=== PATIENT | female | born 1980 | race Caucasian/White ===

== ENCOUNTER 2016-09-02 21:47 | Emergency (ER) | payer OTHER | END 2016-09-03 00:10 | disposition left against medical advice (07) | LOC: ER1 21:47 | DX: Z53.21 Procedure and treatment not carried out due to patient leaving prior to being seen by health care provider (principal) ==

== ENCOUNTER 2016-09-15 21:46 | Emergency (ER) | payer OTHER ==
[2016-09-15 22:57] LABS: HEMOGLOBIN 15.5 gm/dl (12.3-15.3); RED BLOOD COUNT 4.82 M/UL (4.00-5.10)
[2016-09-15 23:22] LABS: BUN/CREATININE RATIO 11 (0-10)
[2016-09-16 02:37] LABS: BUN/CREATININE RATIO 13 (0-10)
== END 2016-09-16 04:05 | disposition home or self-care (01) ==
LOC: ER1 21:46
PROVIDERS: Student in an Organized Health Care Education/Training Program
DX: F41.9 Anxiety disorder, unspecified (principal); F11.10 Opioid abuse, uncomplicated; F12.10 Cannabis abuse, uncomplicated; D72.829 Elevated white blood cell count, unspecified; R06.00 Dyspnea, unspecified; C15.9 Malignant neoplasm of esophagus, unspecified; Z88.0 Allergy status to penicillin; Z88.6 Allergy status to analgesic agent; Z88.8 Allergy status to other drugs, medicaments and biological substances; Z79.899 Other long term (current) drug therapy
CPT/HCPCS: 36415; 71010; 80048; 80053; 80307; 81001; 82550; 82553; 83874; 84484; 84703; 85025; 85379; 87086; 93005; 96374; 96375; 96376; 99285; J2060; J2270; J2405

== ENCOUNTER 2016-09-23 18:44 | Emergency (ER) | payer OTHER ==
[2016-09-23 19:44] LABS: HEMOGLOBIN 13.8 gm/dl (12.3-15.3); RED BLOOD COUNT 4.32 M/UL (4.00-5.10); WHITE BLOOD COUNT 13.8 K/UL (4.5-11.0)
[2016-09-23 20:06] LABS: BUN/CREATININE RATIO 8 (0-10)
== END 2016-09-23 22:24 | disposition home or self-care (01) ==
LOC: ER1 18:44
PROVIDERS: Physician Assistant
DX: B37.0 Candidal stomatitis (principal); K04.7 Periapical abscess without sinus; F32.9 Major depressive disorder, single episode, unspecified; F17.210 Nicotine dependence, cigarettes, uncomplicated; I10 Essential (primary) hypertension; E66.9 Obesity, unspecified; F41.9 Anxiety disorder, unspecified; Z88.0 Allergy status to penicillin; Z88.6 Allergy status to analgesic agent; Z88.8 Allergy status to other drugs, medicaments and biological substances; Z90.711 Acquired absence of uterus with remaining cervical stump
CPT/HCPCS: 36415; 70491; 71010; 80048; 85025; 86140; 87081; 87880; 96374; 96375; 99283; J1100; J2270; J7050; Q9962

== ENCOUNTER 2016-10-10 19:03 | Emergency (ER) | payer OTHER | END 2016-10-10 21:00 | disposition left against medical advice (07) | LOC: ER1 19:03 | DX: K22.8 Other specified diseases of esophagus (principal); M54.9 Dorsalgia, unspecified | CPT/HCPCS: 36415; 93005; 99284 ==

== ENCOUNTER 2020-06-12 01:28 | Emergency (ER) | payer OTHER ==
[~2020-06-12 01:28] MED LIST: BACLOFEN20 MG PO; BREO ELLIPTA 21 EACH INH; CYCLOBENZAPRINE10 MG PO; EMGALITY120 MG/1 M INJ; HYDROCODON-ACE1 EAC2 PO; NAPROSYN500 MG PO; NORCO 7.5-3251 EACH PO; VENTOLIN HFA 66.7 GM INH
[2020-06-12] MEDS ORDERED: CYCLOBENZAPRINE10 MG PO (03:13)
[2020-06-12] MEDS ORDERED: IBUPROFEN800 MG PO (03:13)
== END 2020-06-12 03:35 | disposition home or self-care (01) ==
LOC: ER1 01:28
DX: M79.621 Pain in right upper arm (principal); F17.210 Nicotine dependence, cigarettes, uncomplicated; Z88.0 Allergy status to penicillin; Z88.1 Allergy status to other antibiotic agents; Z88.8 Allergy status to other drugs, medicaments and biological substances
CPT/HCPCS: 96372; 99283; J1885; J2360

== ENCOUNTER → 2020-10-29 | Outpatient (CLI) | payer OTHER ==
[~2020-10-29] MED LIST changes: +IBUPROFEN800 MG PO
== END ==
LOC: EXRD 16:00
DX: M79.604 Pain in right leg (principal); M79.605 Pain in left leg
CPT/HCPCS: 93970

== ENCOUNTER → 2021-02-02 | Outpatient (CLI) | payer OTHER | LOC: KOH-I 14:30 | DX: R22.1 Localized swelling, mass and lump, neck (principal) | CPT/HCPCS: 70450; 70490 ==

== ENCOUNTER → 2021-04-26 | Outpatient (CLI) | payer OTHER | LOC: RAD 08:00 | DX: R13.10 Dysphagia, unspecified (principal) | CPT/HCPCS: 74221 ==

== ENCOUNTER 2021-07-17 20:28 | Emergency (ER) | payer OTHER ==
[2021-07-17 22:34] LABS: RED BLOOD COUNT 4.61 M/UL (4.00-5.10)
[2021-07-17 23:08] LABS: BORDETELLA PARAPERTUSSIS Not Detected (Not Detectd); BORDETELLA PERTUSSIS Not Detected (Not Detectd); CHLAMYDIA PNEUMONIAE Not Detected (Not Detectd); CORONAVIRUS HKU1 Not Detected (Not Detectd); CORONAVIRUS NL63 Not Detected (Not Detectd); CORONAVIRUS OC43 Not Detected (Not Detectd); CORONOAVIRUS 229E Not Detected (Not Detectd); HUMAN METAPNEUMOVIRUS Not Detected (Not Detectd); HUMAN RHINOVIRUS/ENTEROVIRUS Not Detected (Not Detectd); INFLUENZA A Not Detected (Not Detectd); INFLUENZA B Not Detected (Not Detectd); MYCOPLASMA PNEUMONIAE Not Detected (Not Detectd); PARAINFLUENZA VIRUS 1 Not Detected (Not Detectd); PARAINFLUENZA VIRUS 2 Not Detected (Not Detectd); PARAINFLUENZA VIRUS 3 Not Detected (Not Detectd); PARAINFLUENZA VIRUS 4 Not Detected (Not Detectd); RESPIRATORY SYNCYTIAL VIRUS Not Detected (Not Detectd)
[2021-07-17 23:36] LABS: BUN/CREATININE RATIO 14 (0-10)
[2021-07-18 00:45] LABS: SARS-CoV-2 DETECTED (Not Detectd)
== END 2021-07-18 01:45 | disposition home or self-care (01) ==
LOC: ER1 20:28
PROVIDERS: Physician Assistant Medical
DX: U07.1 COVID-19 (principal); F17.210 Nicotine dependence, cigarettes, uncomplicated; Z90.49 Acquired absence of other specified parts of digestive tract; Z88.0 Allergy status to penicillin; Z90.710 Acquired absence of both cervix and uterus
CPT/HCPCS: 71045; 80053; 85025; 87633

== ENCOUNTER 2021-08-28 14:11 | Emergency (ER) | payer OTHER ==
[2021-08-28 15:00] LABS: HEMOGLOBIN 15.2 gm/dl (12.3-15.3); RED BLOOD COUNT 4.68 M/UL (4.00-5.10)
[2021-08-28 15:16] LABS: BUN/CREATININE RATIO 15 (0-10)
[2021-08-28] MEDS ORDERED: CLEOCIN HCL300 MG PO (15:55)
== END 2021-08-28 16:17 | disposition home or self-care (01) ==
LOC: ER1 14:11
PROVIDERS: Nurse Practitioner
DX: L02.511 Cutaneous abscess of right hand (principal); L03.011 Cellulitis of right finger; F17.210 Nicotine dependence, cigarettes, uncomplicated; Z88.0 Allergy status to penicillin; Z88.8 Allergy status to other drugs, medicaments and biological substances
CPT/HCPCS: 80053; 80307; 81001; 83605; 85025; 87040; 96374; 99283